=== PATIENT | female | born 1980 | race African-American/Black ===

== ENCOUNTER 2020-11-15 13:26 | Emergency (ER) | payer OTHER, SELFPAY ==
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
[2020-11-15 13:37] VITALS: BP 139/86; PULSE 72; RESP 16; TEMP 36.2; O2SAT 100
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
[2020-11-15] MEDS: IBUPROFEN 600 MG TABLET PO (15:14)
== END 2020-11-15 15:47 | disposition home or self-care (01) ==
LOC: ANHED 15:30
PROVIDERS: Emergency Provider Emergency Medicine; PCP Internal Medicine Gastroenterology
DX: S00.93XA Contusion of unspecified part of head, initial encounter (principal); S16.1XXA Strain of muscle, fascia and tendon at neck level, initial encounter; F17.290 Nicotine dependence, other tobacco product, uncomplicated; V48.5XXA Car driver injured in noncollision transport accident in traffic accident, initial encounter
CPT/HCPCS: 70450; 71046; 72125; 73030; 99284; A9270